=== PATIENT | male | born 1960 | race Caucasian/White ===

== ENCOUNTER 2018-04-04 11:09 | Day surgery (SDC) | payer MEDICAID ==
[~2018-04-04] VITALS: Ht 180.3 cm; Wt 95.5 kg
[2018-04-04] MEDS ORDERED: MIDAZolam 5mg/5ml vial ONE (11:31)
[2018-04-04] MEDS ORDERED: LIDOcaine Viscous 15ml cup ONE (11:31)
[2018-04-04] MEDS ORDERED: fentaNYL/PF 50MCG/1 ML 2ML syringe ONE (11:31)
[2018-04-04] MEDS ORDERED: HYDR-4383 PO (11:36)
[2018-04-04] MEDS ORDERED: OMEP40CA37 PO (11:37)
[2018-04-04 12:00] VITALS: BP 131/73
[2018-04-04 12:20] VITALS: BP 147/98
[2018-04-04 12:30] VITALS: BP 141/93
[2018-04-04 12:40] VITALS: BP 140/92
[2018-04-04 12:50] VITALS: BP 133/88
== END 2018-04-04 12:55 | disposition home or self-care (01) ==
LOC: GI LAB 11:09
PROVIDERS: ATTEND Internal Medicine Gastroenterology
DX: I85.00 Esophageal varices without bleeding (principal); K76.6 Portal hypertension; K31.89 Other diseases of stomach and duodenum; Z86.19 Personal history of other infectious and parasitic diseases; Z92.21 Personal history of antineoplastic chemotherapy; Z85.9 Personal history of malignant neoplasm, unspecified; Z79.891 Long term (current) use of opiate analgesic; Z88.0 Allergy status to penicillin; Z79.899 Other long term (current) drug therapy; Z98.890 Other specified postprocedural states
CPT/HCPCS: 43244; 99152; J2250; J3010; J7030; A4620

== ENCOUNTER 2018-05-16 13:26 | Day surgery (SDC) | payer MEDICAID ==
[~2018-05-16] VITALS: Ht 180.3 cm; Wt 94.1 kg
[~2018-05-16 13:26] MED LIST: HYDR-4383 PO; OMEP40CA37 PO
[2018-05-16 13:35] VITALS: BP 143/72
[2018-05-16] MEDS ORDERED: fentaNYL/PF 50MCG/1 ML 2ML syringe ONE (14:01)
[2018-05-16] MEDS ORDERED: LIDOcaine Viscous 15ml cup ONE (14:01)
[2018-05-16] MEDS ORDERED: MIDAZolam 5mg/5ml vial ONE (14:01)
[2018-05-16 14:32] VITALS: BP 162/99
[2018-05-16 14:42] VITALS: BP 147/86
[2018-05-16 14:52] VITALS: BP 137/82
[2018-05-16 15:02] VITALS: BP 137/84
== END 2018-05-16 15:05 | disposition home or self-care (01) ==
LOC: GI LAB 13:26
PROVIDERS: ATTEND Internal Medicine Gastroenterology
DX: I85.00 Esophageal varices without bleeding (principal); K76.6 Portal hypertension; K31.89 Other diseases of stomach and duodenum; F17.210 Nicotine dependence, cigarettes, uncomplicated; Z92.21 Personal history of antineoplastic chemotherapy; Z85.05 Personal history of malignant neoplasm of liver; Z79.891 Long term (current) use of opiate analgesic; Z88.0 Allergy status to penicillin; Z79.899 Other long term (current) drug therapy; Z98.890 Other specified postprocedural states
CPT/HCPCS: 43244; 99152; J2250; J3010; J7030; A4620